=== PATIENT | female | born 1940 | race Asian ===

== ENCOUNTER 2019-10-17 07:56 | Outpatient (CLI) | payer MEDICARE | END 2019-10-17 23:59 | disposition home or self-care (01) | LOC: CFH 07:56 → RAD 23:59 | PROVIDERS: ATTEND Internal Medicine Gastroenterology | DX: Z12.31 Encounter for screening mammogram for malignant neoplasm of breast (principal); N64.89 Other specified disorders of breast; K44.9 Diaphragmatic hernia without obstruction or gangrene; K21.9 Gastro-esophageal reflux disease without esophagitis; Z87.891 Personal history of nicotine dependence; Z88.8 Allergy status to other drugs, medicaments and biological substances | CPT/HCPCS: 74241; 76700; 77067 ==

== ENCOUNTER 2019-11-07 07:55 | Outpatient (CLI) | payer MEDICARE ==
[2019-11-07] MEDS ORDERED: OMNIPAQUE 350 MG/ML, 100ML BOTTLE ONE (15:00)
== END 2019-11-07 23:59 | disposition home or self-care (01) ==
LOC: CFH 07:55
PROVIDERS: ATTEND Internal Medicine Gastroenterology
DX: K21.0 Gastro-esophageal reflux disease with esophagitis (principal); K44.9 Diaphragmatic hernia without obstruction or gangrene; M19.90 Unspecified osteoarthritis, unspecified site; E03.9 Hypothyroidism, unspecified; F41.9 Anxiety disorder, unspecified; Z79.899 Other long term (current) drug therapy
CPT/HCPCS: 74177; 82565; Q9967

== ENCOUNTER → 2020-01-26 | Outpatient (CLI) | payer MEDICARE | END | disposition home or self-care (01) | LOC: RAD 10:36 | PROVIDERS: ATTEND Internal Medicine Gastroenterology | DX: R11.2 Nausea with vomiting, unspecified (principal); K21.9 Gastro-esophageal reflux disease without esophagitis; R91.1 Solitary pulmonary nodule | CPT/HCPCS: 78264; A9541 ==

== ENCOUNTER 2020-04-25 09:55 | Observation (INO) | payer MEDICARE ==
[~2020-04-25] VITALS: Ht 157 cm; Wt 56.3 kg
[2020-04-25] MEDS ORDERED: LEVO75TA PO (10:30)
--- NOTE | 2020-04-25 10:35 | NUR ---
THIS IS A 79 YO FEMALE WHO PRESENTS TO THE ER C/O INTERMITTENT CHEST DISCOMFORT X NIGHTS WHERE PT STATES SHE "FEELS LIKE MY HEART IS RACING, BUT I CHECK MY PULSE AND IT'S NOT" AND ANXIETY AT NIGHT. PT DENIES PAIN OR SOB AT THIS TIME. PT AO X 4. SKIN WARM AND DRY. RESP EVEN AND UNLABORED. 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 CALL LIGHT WITHIN REACH. WILL CONT TO MONITOR PT.
--- NOTE | 2020-04-25 10:40 | NUR ---
PT REPORTED SHE TOOK 5 BABY CHEWABLE ASA PRIOR TO ARRIVAL TODAY.
[2020-04-25 11:11] LABS: BASOPHILS # (AUTO) 0.02 x10^3/uL (0-0.1); BASOPHILS % (AUTO) 0 % (0-1); EOSINOPHILS # (AUTO) 0.09 x10^3/uL (0-0.4); EOSINOPHILS % (AUTO) 2 % (1-7); LYMPHOCYTES # (AUTO) 1.03 x10^3/uL (1-3.4); LYMPHOCYTES % (AUTO) 20 % (22-44); MD NO; MEAN CORPUSCULAR HEMOGLOBIN 30.4 pg (27.0-34.8); MEAN CORPUSCULAR HGB CONC 32.9 g/dL (32.4-35.8); MEAN CORPUSCULAR VOLUME 92.3 fL (80-100); MEAN PLATELET VOLUME 7.8 fL (7.4-10.4); MONOCYTES # (AUTO) 0.26 x10^3/uL (0.2-0.8); MONOCYTES % (AUTO) 5 % (2-9); NEUTROPHILS # (AUTO) 3.76 x10^3/uL (1.8-6.8); NEUTROPHILS % (AUTO) 73 % (42-75); PLATELET COUNT 325 x10^3/uL (130-400); RED BLOOD COUNT 4.78 x10^6/uL (3.82-5.3); RED CELL DISTRIBUTION WIDTH 14.3 % (9.6-15.2)
[2020-04-25 11:24] LABS: ALBUMIN 4.1 g/dL (3.4-5.0); ANION GAP 9 mmol/L (5-15); CALCIUM 9.1 mg/dL (8.5-10.1); CHLORIDE 110 mmol/L (98-107)
[2020-04-25 11:29] LABS: CREATININE 0.82 mg/dL (0.55-1.02); TROPONIN I < 0.015 ng/mL (0.000-0.045)
--- NOTE | 2020-04-25 11:48 | NUR ---
PT CURRENTLY RESTING ON [place]. NO ACUTE DISTRESS NOTED. PT AO X 4. SKIN PWD. RESP EVEN AND UNLABORED. PT CURRENTLY DENIES ANY PAIN OR SOB. PT AWARE WE ARE WAITING FOR RECHECK BY KENJI.
[2020-04-25] MEDS ORDERED: NITROGLYCERIN OINT 2%, 1GM TP ONE ×2 (12:00→12:57)
--- NOTE | 2020-04-25 12:30 | NUR ---
PT UP TO USE TELEPHONE. STEADY UPON AMBULATION TO AND FROM PHONE. PT CONT TO DENY CP, SOB OR DIZZINESS. PT AWARE SHE IS TO BE ADMITTED. PT ON CONT BP, CARDIAC AND O2 MONITORS. 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 PT DENIES NEEDS. CALL LIGHT WITHIN REACH.
[2020-04-25] MEDS ORDERED: NITROGLYCERIN 0.4 MG BOTTLE (25 TABS) SL PRN (13:00)
[2020-04-25] MEDS ORDERED: NITROGLYCERIN 0.4 MG/SPRAY SL PRN (13:00)
[2020-04-25] MEDS ORDERED: MORPHINE SULFATE 4 MG/ML, 1ML IVPush PRN (13:00)
--- NOTE | 2020-04-25 13:20 | NUR ---
ADMITTING MD ABADU AT BEDSIDE FOR EVAL. PER MD MACDONALDTU, WE ARE TO HOLD NITRO PASTE. PT IS ASYMPTOMATIC AT THIS TIME AND BP IS 163/67. PT AO X 4. SKIN WARM AND DRY. RESP EVEN AND UNLABORED. PT ON CONT BP, CARDIAC AND O2 MONITORS. CALL LIGHT WITHIN REACH. WILL CONT TO MONITOR PT.
[2020-04-25] MEDS ORDERED: ONDANSETRON 2MG/ML, 2ML IVPush PRN (13:30)
[2020-04-25] MEDS ORDERED: ACETAMINOPHEN 325 MG TABLET PO PRN (13:30)
--- NOTE | 2020-04-25 14:04 | NUR ---
PT PROVIDED WITH MEAL TRAY. NO ACUTE DISTRESS NOTED. PT AO X 4. SKIN WARM AND DRY. RESP EVEN AND UNLABORED. 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 CALL LIGHT WITHIN REACH. WILL CONT TO MONITOR PT.
[2020-04-25] MEDS ORDERED: ONDANSETRON 2MG/ML, 2ML ONE (14:31)
[2020-04-25] MEDS ORDERED: ENOXAPARIN 40 MG/0.4 ML ONE (14:34)
[2020-04-25] MEDS: ENOXAPARIN 40 MG/0.4 ML SQ SCH (14:35)
--- NOTE | 2020-04-25 15:09 | NUR ---
REPORT TO VON CLEMONS ON CARD/TELE.
[2020-04-25 15:38] VITALS: BP 148/66
[2020-04-25 17:45] LABS: TROPONIN I < 0.015 ng/mL (0.000-0.045)
[2020-04-25] MEDS ORDERED: LANS30CA60 PO (18:39)
[2020-04-25] MEDS ORDERED: CHOL10003 PO (18:41)
[2020-04-25] MEDS ORDERED: MELATONIN 5 MG TABLET PO PRN (21:00)
[2020-04-25 21:49] VITALS: BP 139/77
[2020-04-25 23:40] LABS: TROPONIN I < 0.015 ng/mL (0.000-0.045)
[2020-04-26 02:18] VITALS: BP 119/63
[2020-04-26 05:34] LABS: BASOPHILS # (AUTO) 0.02 x10^3/uL (0-0.1); BASOPHILS % (AUTO) 1 % (0-1); EOSINOPHILS # (AUTO) 0.15 x10^3/uL (0-0.4); EOSINOPHILS % (AUTO) 4 % (1-7); LYMPHOCYTES # (AUTO) 1.58 x10^3/uL (1-3.4); LYMPHOCYTES % (AUTO) 36 % (22-44); MD NO; MEAN CORPUSCULAR HEMOGLOBIN 29.8 pg (27.0-34.8); MEAN CORPUSCULAR HGB CONC 32.3 g/dL (32.4-35.8); MEAN CORPUSCULAR VOLUME 92.3 fL (80-100); MEAN PLATELET VOLUME 8.2 fL (7.4-10.4); MONOCYTES % (AUTO) 7 % (2-9); NEUTROPHILS # (AUTO) 2.36 x10^3/uL (1.8-6.8); NEUTROPHILS % (AUTO) 54 % (42-75); PLATELET COUNT 266 x10^3/uL (130-400); RED BLOOD COUNT 4.33 x10^6/uL (3.82-5.3); RED CELL DISTRIBUTION WIDTH 14.3 % (9.6-15.2)
[2020-04-26 05:46] LABS: CHLORIDE 113 mmol/L (98-107)
[2020-04-26] MEDS ORDERED: OMEPRAZOLE 20 MG CAPSULE.DR PO SCH (06:00)
[2020-04-26] MEDS ORDERED: LEVOTHYROXINE 75 MCG TABLET PO SCH (06:00)
[2020-04-26] MEDS ORDERED: ASPIRIN 325 MG TABLET EC PO SCH (06:00)
[2020-04-26 06:04] LABS: ALANINE AMINOTRANSFERASE 12 U/L (12-78); ALBUMIN 3.4 g/dL (3.4-5.0); ALKALINE PHOSPHATASE 47 U/L (45-117); ANION GAP 6 mmol/L (5-15); BILIRUBIN,TOTAL 0.4 mg/dL (0.2-1.0); CALCIUM 8.2 mg/dL (8.5-10.1); CHOL/HDL RATIO 2.3; CHOLESTEROL, TOTAL 173 mg/dL (140-239); CREATININE 0.85 mg/dL (0.55-1.02); HDL CHOL % 43 % (28-40); HDL CHOLESTEROL (DIRECT) 75 mg/dL (40-60); LDL CHOLESTEROL,CALCULATED 81 mg/dL (54-169); LDL/HDL RATIO 1.1 (0.5-3.0); TOTAL PROTEIN 6.5 g/dL (6.4-8.2); TRIGLYCERIDES 84 mg/dL (50-200); VLDL CHOLESTEROL 17 mg/dL (0-25)
[2020-04-26 08:29] VITALS: BP 144/70
[2020-04-26] MEDS: ENOXAPARIN 40 MG/0.4 ML SQ SCH (13:30)
[2020-04-26 13:49] VITALS: BP 137/73
[2020-04-26] MEDS ORDERED: ASPI-515 PO (14:26)
[2020-04-26] MEDS ORDERED: OMEP-110 PO ×2 (14:58)
== END 2020-04-26 16:10 | disposition home or self-care (01) ==
LOC: ED 11:56 → INTOOBSV 12:07 → EDIP 12:07 → SUATTDRO 12:51 → 5SO 15:23 → DCLOUNGE 04-26 16:00
PROVIDERS: ADMIT Internal Medicine; ATTEND Internal Medicine
DX: R07.89 Other chest pain (principal); E03.9 Hypothyroidism, unspecified; K21.9 Gastro-esophageal reflux disease without esophagitis; F12.90 Cannabis use, unspecified, uncomplicated; R00.1 Bradycardia, unspecified; Z87.891 Personal history of nicotine dependence; Z79.82 Long term (current) use of aspirin; Z79.899 Other long term (current) drug therapy
CPT/HCPCS: 36415; 71045; 80048; 80053; 80061; 82040; 84443; 84484; 85025; 85379; 93005; 93017; 93306; 96372; 96374; 99285; G0378; J1650; J2405

== ENCOUNTER 2021-03-14 08:45 | Outpatient (CLI) | payer MEDICARE ==
[~2021-03-14 08:45] MED LIST: ASPI-963 PO; CHOL10003 PO; LANS30CA60 PO; LEVO75TA PO; OMEP-110 PO
== END 2021-03-14 23:59 | disposition home or self-care (01) ==
LOC: CFH 08:45
PROVIDERS: ATTEND Internal Medicine
DX: Z12.31 Encounter for screening mammogram for malignant neoplasm of breast (principal); M81.0 Age-related osteoporosis without current pathological fracture; M85.80 Other specified disorders of bone density and structure, unspecified site; N95.9 Unspecified menopausal and perimenopausal disorder
CPT/HCPCS: 77067; 77080